=== PATIENT | female | born 1960 | race Caucasian/White ===

== ENCOUNTER 2023-05-20 19:25 | Emergency (ER) | payer BC, SELFPAY ==
[2023-05-20 19:38] VITALS: BP 203/106
[2023-05-20 20:01] VITALS: BMI 31.5
[2023-05-20 20:04] VITALS: BP 179/72
[2023-05-20 20:20] LABS: Hemoglobin 13.8 g/dL (12.0-16.0); Mean Corp Hgb Conc. 33.7 g/dL (33.0-37.0); Mean Corpuscular Hgb 27.7 pg (27.0-31.0); Mean Corpuscular Volume 82.2 fL (81.0-99.0); Mean Platelet Volume 8.7 fL (7.4-10.4); Platelet Count 260 10^3/uL (130-400); Red Blood Cell Count 4.99 10^6/uL (4.20-5.40)
[2023-05-20 20:30] VITALS: BP 176/80
[2023-05-20 20:34] VITALS: BP 155/77
[2023-05-20 20:35] LABS: ALT (SGPT) 21 U/L (0-35); AST (SGOT) 28 U/L (14-36); Albumin 3.8 g/dl (3.5-5.0); Alkaline Phosphatase 97 U/L (38-126); Blood Urea Nitrogen 21 mg/dl (7-17); Calcium 9.4 mg/dl (8.4-10.2); Carbon Dioxide 21 mmol/L (22-30); Chloride 103 mmol/L (98-107); Estimated Creatinine Clearance 87 ml/min; Glucose 115 mg/dl (70-99); Potassium 4.1 mmol/L (3.5-5.1); Sodium 135 mmol/L (135-145); Total Bilirubin 0.5 mg/dl (0.2-1.3); Total Protein 6.7 g/dl (6.3-8.2); eGFR > 60.00
[2023-05-20 20:43] LABS: Troponin I < 0.012 ng/ml
--- NOTE | 2023-05-20 20:50 | ED.GENMED ---
History of Present Illness
General
Chief Complaint: Blood Pressure Problem
Source: patient
Exam Limitations: none
Time Seen by Provider: 05/20/23 20:09
Travel History
Have you had any contact with someone who has COVID-19?: No
Do you have any symptoms of coronavirus? Fever > 100 degrees, chills, cough, shortness of breath, sore throat, loss of taste or smell, muscle aches, or headache?: No
History of Present Illness
History of Present Illness:
This is a 62 year old female that comes in with c/o a headache and elevated BP. States that for the past couple of days she has had a headache. State that she decided to check her BP today and it was 180/100. States that she could eventually get it
down to 140/80 but it would go back up. States that she was getting ready for bed and became anxious and thought she had some chest discomfort. States that she felt she better get checked. States that she took some Tylenol and Aleve and her
headache is gone at this time along with her chest discomfort. Denies any fever, chills, SOB, abd pain, nausea, vomiting, diarrhea, dizziness, urinary burning.
Past History
Past History
ED Past Medical History: Cancer (Leukemia)
ED Past Surgical History: None
Social History
Tobacco: Former smoker
Alcohol: Former (22 years ago)
Personal:
Living: alone
Review of Systems
Review of Systems
All Other Systems: ROS reviewed and negative except as documented in HPI and ROS
Constitutional: Reports no symptoms; Denies fever or chills
EENT: Reports no symptoms
Respiratory: Denies cough or trouble breathing
Cardiac: Reports chest pain
ABD/GI: Reports no symptoms; Denies abdominal pain, nausea, vomiting or diarrhea
: Reports no symptoms; Denies dysuria, frequency or urgency
Musculoskeletal: Reports no symptoms
Skin: Reports no symptoms
Neurological: Reports headache; Denies dizzy
Psychiatric: Reports no symptoms
Phy Exam
General Physical Exam
General Presentation: well appearing and no apparent distress
General age: appears stated age
General Skin: warm and dry
General Habitus: normal
General Mental: alert
General Hydration: appears well hydrated
ENT Exam
ENT Exam: TM's normal, pharynx normal and neck supple
Eye Exam
Eye Exam: EOMI
Cardiovascular Exam
Cardiovascular Exam: regular rate/rhythm, no edema, no murmur and normal peripheral pulses
Pulmonary Exam
Pulmonary Exam: lungs clear, no respiratory distress, no rales, chest non tender, no crackles, no rhonchi, no wheezing and no cough
Gastrointestinal Exam
Gastrointestinal Exam: normal bowel sounds, non tender, soft, no organomegaly, no pulsatile mass and non distended
Musculoskeletal Exam
Musculoskeletal Exam: full ROM and no edema
Skin Exam
Skin Exam: normal color, warm/dry, no rash and no petechia
Psychiatric Exam
Psychiatric Exam: normal mood/affect
Course
Orders/Labs/Results
Orders:
Orders
05/20/23 19:31
Electrocardiogram (*1) Urgent
Reason for Study: Chest Pain
EKG- Treatment ONCE
05/20/23 20:11
CMP [Comprehensive Metabolic Panel] Urgent
Complete Blood Count/With Diff Urgent
Manual Differential Urgent
Troponin I Urgent
05/20/23 20:48
HydrALAZINE [Apresoline] 2.5 mg IV NOW STA
Abnormal Lab Results
05/20/23
20:11
WBC 31.0 H 10^3/uL
(4.8-10.8)
Carbon Dioxide 21 L mmol/L
(22-30)
BUN 21 H mg/dl
(7-17)
Glucose 115 H mg/dl
(70-99)
05/20/23 20:11
05/20/23 20:11
Leukocytosis ( history of Leukemia and says her WBC are always elevated), Dehyration. Glucose nonfasting. Troponin <0.012
Vital Signs
Initial and Last Documented VS:
Initial Vital Signs
Temp Pulse Resp BP Pulse Ox
98 F 80 26 203/106 99
05/20/23 19:38 05/20/23 19:38 05/20/23 19:38 05/20/23 19:38 05/20/23 19:38
Last Documented Vital Signs
Temp Pulse Resp BP Pulse Ox
98 F 78 14 155/77 96
05/20/23 19:38 05/20/23 20:34 05/20/23 20:34 05/20/23 20:34 05/20/23 20:34
MDM/Problems Addressed
Differential Diagnosis Includes:
Hypertension. Anxiety
MDM/Problems Addressed:
This is a 62 year old female that comes in with c/o headache and elevated BP. States that for the past coupld of days she had a headache. Today she checked her BP and her BP was elevated. States that she could get it down but would go right back up.
States that she took Tylenol and Advil and her headache is now gone. States that she was getting ready for bed and was feeling anxious and then thought that she had some chest discomfort. This is also gone.
Will check labs and given low Dose Hydralazine. Will give patient a low dose Norvasc and have patient follow up with the family doctor for recheck. Offered patient a CT of the head but patient refused.
Back into see patient. Patient BP down to 148/78. Will have patient follow up with the family doctor. Will given Low dose Norvasc. Patient to return with any concerns.
Chronic conditions affecting care:
NA
Acute Exacerbation and/or Progression of Chronic Illness:
NA
*Pulse Oximetry
Patient hypoxic: no
*EKG
Interpreted by ED Provider?: Yes
Heart Rate: 74
Rate: normal
Rhythm: sinus and PVC's
[place]: normal axis
Interval: normal interval
QRS Pattern: normal QRS
Ischemia: no ischemia
*Draw End Hand Interpretation
Rate: normal
Heart Rate: 78
Rhythm: sinus
*Critical Care Note
Total Time (30-74mins, 75-104mins- exclusive of procedures): Not Applicable
ED Attending Note
-
Portions of this chart may have been created with voice recognition software.� Occasional wrong word or��sound alike� substitutions may have occurred due to the inherent limitations of voice recognition software.
Discharge Plan
Departure
Patient Disposition: Home (Routine Discharge)
Date of Disposition: 05/20/23
Time of Disposition: 21:42
Patient with high blood pressure during this ER visit?: Yes
Condition: Good
Covid-19: Not Applicable
Discharge Problem:
Hypertension, Chest pain
Instructions: Chest Pain PCP Follow Up, BLOOD PRESSURE
Prescriptions:
New
amlodipine [Norvasc] 2.5 mg tablet
2.5 mg PO DAILY Qty: 15 0RF
Referrals:
Hayley Parks MD [Family Provider] - Follow up in 2-3 days
Activity Restrictions/Additional Instructions:
As discussed, your blood work shows your elevated White blood cell count which goes along with your diagnosis of Leukemia. Your Troponin and ECG are normal. Your BP has come down to 148/78. You have also been given a prescription for Norvasc 2.5mg
which will help to keep your BP lower. Please follow up with the family doctor in the next 2- 3days for recheck. If they need to increase the dosage or wish to change the medication this will be up to them. IF YOU HAVE ANY OTHER CONCERNS PLEASE
RETURN TO THE EMERGENCY ROOM.
Interventions
Interventions:
*Risk Screen - Suicide Last Done: 05/20/23 19:34
*Neglect/Abuse Screening Last Done: 05/20/23 19:34
ED- Cardiac Assessment Last Done: 05/20/23 20:01
ED- Neurological Assessment Last Done: 05/20/23 20:01
ED- Pulmonary Assessment Last Done: 05/20/23 20:01
[2023-05-20] MEDS: APRESOLINE 2.5 MG IV (20:54)
[2023-05-20 21:00] VITALS: BP 156/73
[2023-05-20 21:30] VITALS: BP 148/78
[2023-05-21 09:06] LABS: Absolute Neutrophils -Man Diff 8.3 10^3/uL (1.4-6.5); Band Neutrophils 0 % (0-3); Eosinophils 2 % (0-6); Lymphocytes 67 % (20-51); Monocytes 2 % (2-9); Segmented Neutrophils 27 % (42-75)
[2023-05-21 09:07] LABS: Atypical Lymphocytes 2 %; Normal RBC Morphology Yes; Platelets Checked Yes; Smudge Cells 2+; Total Cells Counted 100
== END 2023-05-20 21:59 | disposition home or self-care (01) ==
LOC: EMR 19:25
PROVIDERS: Emergency Medicine; EMERGENCY PHYSICIAN Student in an Organized Health Care Education/Training Program; FAMILY PHYSICIAN Family Medicine
DX: R07.89 Other chest pain (principal); R51.9 Headache, unspecified; I10 Essential (primary) hypertension; Z87.891 Personal history of nicotine dependence; Z85.6 Personal history of leukemia
CPT/HCPCS: 99284; 96374; 80053; 84484; 85025; 93005

== ENCOUNTER → 2023-10-05 09:14 | Outpatient (REF) | payer BC, SELFPAY | LOC: WDC 09:14 | PROVIDERS: ATTENDING PHYSICIAN Family Medicine | DX: N63.31 Unspecified lump in axillary tail of the right breast (principal); R22.31 Localized swelling, mass and lump, right upper limb | CPT/HCPCS: 76642; 77062; 77066 ==

== ENCOUNTER → 2024-11-20 18:14 | Outpatient (REF) | payer BC, SELFPAY | LOC: WDC 18:14 | PROVIDERS: ATTENDING PHYSICIAN Family Medicine | DX: Z12.31 Encounter for screening mammogram for malignant neoplasm of breast (principal) | CPT/HCPCS: 77063; 77067 ==

== ENCOUNTER → 2024-11-25 08:04 | Outpatient (REF) | payer BC, SELFPAY | LOC: WDC 08:04 | PROVIDERS: ATTENDING PHYSICIAN Family Medicine | DX: R92.8 Other abnormal and inconclusive findings on diagnostic imaging of breast (principal) | CPT/HCPCS: 76642 ==